=== PATIENT | male | born 1980 | race Caucasian/White ===

== ENCOUNTER 2021-08-21 15:32 | Emergency (ER) | payer OTHER, SELFPAY ==
[2021-08-21 15:35] VITALS: BP 143/75; PULSE 105; RESP 20; TEMP 36.4; O2SAT 100
--- NOTE | 2021-08-21 15:38 | DI.RAD.S_ITS ---
PROCEDURE: XR CHEST 1V INDICATIONS: chest pain TECHNIQUE: One view of the chest was acquired. COMPARISON: None. FINDINGS: Surgical changes and devices: None. Lungs and pleura: Lungs are clear. No pleural effusions or pneumothorax. Mediastinum: Mediastinal contours appear normal. Heart size is normal. Bones and chest wall: No suspicious bony lesions. Overlying soft tissues appear unremarkable. IMPRESSION: No acute cardiopulmonary abnormalities or focal airspace disease. There are no imaging findings to explain patient's chest pain. Dictated by: Sid Weaver M.D. on 08/21/2021 at 16:43 Approved by: Sid Weaver M.D. on 08/21/2021 at 16:43
[2021-08-21 16:02] VITALS: PULSE 88; O2SAT 100
[2021-08-21 16:03] VITALS: BP 136/83; PULSE 82; RESP 23; O2SAT 100
[2021-08-21 16:16] LABS: Add Manual Diff / Slide Review NO; Basophils Absolute Auto 100 /uL (0-100); Basophils Percent Auto 0.9 % (0-2); Eosinophils Absolute Auto 200 /uL (0-450); Eosinophils Percent Auto 2.2 % (2-4); Hematocrit 43.5 % (41-53); Hemoglobin 15.4 g/dL (13.5-17.5); Lymphocytes Absolute Auto 1700 /uL (1100-4500); Lymphocytes Percent Auto 21.8 % (25-40); Mean Corpuscular HGB Conc 35.4 % (30-36); Mean Corpuscular Hemoglobin 34.9 PG (26-34); Mean Corpuscular Volume 98.6 fL (80-100); Monocytes Absolute Auto 500 /uL (0-900); Monocytes Percent Auto 6.8 % (3-14); Neutrophils Absolute Auto 5400 /uL (1500-7000); Neutrophils Percent Auto 68.3 % (50-75); Platelet Count 172 X10^3/uL (150-400); Red Blood Cell Count 4.41 X10^6/uL (4.5-5.9); Red Cell Distribution Width 13.9 % (11.6-14.8); White Blood Cell Count 7.9 X10^3/uL (4.5-11.0)
[2021-08-21 16:30] VITALS: BP 123/73; PULSE 72; RESP 18; O2SAT 99
[2021-08-21 16:36] LABS: Lithium 0.8 mmol/L (0.6-1.2)
[2021-08-21 16:38] LABS: Alanine Aminotransferase 34 IU/L (<50); Albumin 4.5 g/dL (3.5-5.0); Albumin Globulin Ratio 1.6 (1.0-2.8); Alkaline Phosphatase 70 U/L (38-126); Aspartate Aminotransferase 39 IU/L (17-59); BUN Creatinine Ratio 12.1 (6-22); Bilirubin Total 0.6 mg/dL (0.2-1.3); Blood Urea Nitrogen 11 mg/dL (9-20); Calcium 9.4 mg/dL (8.4-10.2); Carbon Dioxide 30 mmol/L (22-32); Chloride 103 mmol/L (98-107); Creatine Kinase 213 U/L (55-170); Estimated Glomerular Filt Rate > 60 mL/min (>60); Globulin 2.9 g/dL (1.7-4.1); Glucose 116 mg/dL (70-100); HEMOLYSIS < 15 (0-50); Lipase 55 U/L (23-300); Potassium 3.7 mmol/L (3.4-5.1); Sodium 139 mmol/L (137-145); Total Protein 7.4 g/dL (6.3-8.2)
[2021-08-21 16:50] LABS: Troponin I < 0.012 ng/mL (0.01-0.034)
[2021-08-21 16:54] LABS: CKMB % Relative Index 0.9 % (1.5-5.0); Creatine Kinase MB 1.87 ng/mL (<2.37)
[2021-08-21 17:25] LABS: UR Morphine/Opiate cutoff 300 Negative (Negative); Ur Creatinine Normal (Normal); Ur Specific Gravity Normal (Normal); Urine Amphetamines Negative (Negative); Urine Barbiturates Negative (Negative); Urine Benzodiazepines Negative (Negative); Urine Cocaine Negative (Negative); Urine MDMA Negative (Negative); Urine Methadone Negative (Negative); Urine Methamphetamines Negative (Negative); Urine Oxycodone Negative (Negative); Urine Phencyclidine Negative (Negative); Urine Tetrahydrocannabinol Positive (Negative); Urine Tricyclic Antidepressant Negative (Negative); Urine pH Normal (Normal)
--- NOTE | 2021-08-21 20:41 | ED_ITS ---
HPI - Anxiety <BECKIE Thomas - Last Filed: 08/21/21 20:52> General Chief Complaint: Anxiety Stated Complaint: UNABLE TO FEEL BODY HEART RAISING VISION CHANGES Time Seen by Provider: 08/21/21 16:03 Source: patient Mode of arrival: Ambulatory History of Present Illness HPI narrative: This is a 32 year male presents to the emergency department complaining of not being able to feel his body, congestion allergic rhinitis symptoms, muscle aches, and is concerned about possible medication toxicity. Patient endorses having a history of bipolar and PTSD and is currently lithium 1200 mg, Seroquel 150 mg. He states that he had a dose changes Seroquel two months ago from 200- 150, states his lithium has been at this dose for the last three months. Patient endorses drinking six beers and one bottle of wine on two separate days over the weekend, he denies drinking alcohol usually otherwise. He endorses sm oking marijuana, states he has a history of migraines, denies any headache today but endorses muffled hearing in his ears, congestion, balance issues, muscle aches, sore throat and sinus issues. Patient denies any recent fever, nausea vomiting, weakness, is or known illness. Related Data Previous Rx's Medication Instructions Recorded cetirizine 5 mg-pseudoephedrine ER 1 tab PO BID #14 tab 08/21/21 120 mg tablet,extended release,12hr (Zyrtec-D) hydroxyzine HCl 25 mg tablet 25 mg PO TID PRN #20 tab 08/21/21 methocarbamol 500 mg tablet 500 mg PO TID PRN #20 tab 08/21/21 triamcinolone acetonide 55 mcg 1 spray INTRANASAL QAM #16.9 ml 08/21/21 nasal spray aerosol Allergies Allergy/AdvReac Type Severity Reaction Status Date / Time No Known Drug Allergies Allergy Verified 08/21/21 15:38 Review of Systems <BECKIE Thomas - Last Filed: 08/21/21 20:52> Review of Systems Narrative: General: denies fever, chills Head/Neck: denies headache, neck pain Eyes: denies visual changes, eye pain Cardio: denies chest pain, palpitations Respiratory: denies shortness of breath, cough GI: denies abdominal pain, nausea, vomiting, or diarrhea : denies dysuria, hematuria or flank pain MSK: denies new joint pain, muscle weakness or swelling Skin: denies rash, itching or wound Neuro: denies numbness, tingling, dizziness Patient History <BECKIE Thomas - Last Filed: 08/21/21 20:52> Social History Smoking Status: Current every day smoker Smoking Status: Current every day smoker Exam <BECKIE Thomas - Last Filed: 08/21/21 20:52> Narrative Exam Narrative: Independently reviewed vitals signs and nursing notes. General: Awake, alert, nontoxic, no cardiorespiratory distress Head/Neck: Atraumatic, neck supple Eyes: EOMI, conjunctiva normal Nose: nares patent, + rhinorrhea Mouth/Throat: moist mucus membranes, posterior pharynx without erythema or lesion Cardio: Regular rate and rhythm, no peripheral edema, S1-S2 without murmur Respiratory: respirations unlabored without wheezing, stridor, or rales. No retractions, hypoxia or tachypnea GI: Abdomen soft, nontender to palpation x4 quadrants, no guarding or rebound tenderness MSK: Moves all extremities, neurovascularly intact, range of motion without deficit Skin: Normal capillary refill, no rash Neuro: Normal speech and cognition, normal gait Initial Vital Signs Initial Vital Signs: Vital Signs Temperature 97.6 F 08/21/21 15:35 Pulse Rate 105 H 08/21/21 15:35 Respiratory Rate 20 08/21/21 15:35 Blood Pressure 143/75 H 08/21/21 15:35 Pulse Oximetry 100 08/21/21 15:35 <Ani Bourne DO - Last Filed: 08/22/21 07:21> Initial Vital Signs Initial Vital Signs: Vital Signs Temperature 97.6 F 08/21/21 15:35 Pulse Rate 105 H 08/21/21 15:35 Respiratory Rate 20 08/21/21 15:35 Blood Pressure 143/75 H 08/21/21 15:35 Pulse Oximetry 100 08/21/21 15:35 Course <BECKIE Thomas - Last Filed: 08/21/21 20:52> Orders Ordered: ED Orders 08/21/21 15:38 XR chest 1V Stat EKG-12 Lead Stat 08/21/21 15:50 Complete Blood Count AUTO DIFF Stat Comprehensive Metabolic Panel Stat Lipase Stat [place] Stat Magnesium Stat Troponin & CK Cardiac Panel Stat 08/21/21 17:15 Urine Drug Screen, Rapid Stat Vital Signs Vital signs: Vital Signs - 8 hr 08/21/21 15:35 08/21/21 16:02 08/21/21 16:03 Temperature 97.6 F Pulse Rate 105 H 88 82 Respiratory Rate 20 23 Blood Pressure 143/75 H 136/83 Pulse Oximetry 100 100 100 08/21/21 16:30 Temperature Pulse Rate 72 Respiratory Rate 18 Blood Pressure 123/73 Pulse Oximetry 99 <Ani Bourne DO - Last Filed: 08/22/21 07:21> Orders Ordered: ED Orders 08/21/21 15:38 XR chest 1V Stat EKG-12 Lead Stat 08/21/21 15:50 Complete Blood Count AUTO DIFF Stat Comprehensive Metabolic Panel Stat Lipase Stat [place] Stat Magnesium Stat Troponin & CK Cardiac Panel Stat 08/21/21 17:15 Urine Drug Screen, Rapid Stat Vital Signs Vital signs: Vital Signs - 8 hr 08/21/21 15:35 08/21/21 16:02 08/21/21 16:03 Temperature 97.6 F Pulse Rate 105 H 88 82 Respiratory Rate 20 23 Blood Pressure 143/75 H 136/83 Pulse Oximetry 100 100 100 08/21/21 16:30 Temperature Pulse Rate 72 Respiratory Rate 18 Blood Pressure 123/73 Pulse Oximetry 99 MDM - Anxiety <BECKIE Thomas - Last Filed: 08/21/21 20:52> Lab Data Result diagrams: 08/21/21 15:50 08/21/21 15:50 Labs: Lab Results 08/21/21 08/21/21 08/21/21 Range/Units 15:50 15:50 15:50 WBC 7.9 (4.5-11.0) X10^3/uL RBC 4.41 L (4.5-5.9) X10^6/uL Hgb 15.4 (13.5-17.5) g/dL Hct 43.5 (41-53) % MCV 98.6 (80-100) fL MCH 34.9 H (26-34) PG MCHC 35.4 (30-36) % RDW 13.9 (11.6-14.8) % Plt Count 172 (150-400) X10^3/uL Neut % (Auto) 68.3 (50-75) % Lymph % (Auto) 21.8 L (25-40) % [place] % (Auto) 6.8 (3-14) % Eos % (Auto) 2.2 (2-4) % Baso % (Auto) 0.9 (0-2) % Neut # (Auto) 5400 (0050-3392) /uL Lymph # (Auto) 1700 (6034-2543) /uL [place] # (Auto) 500 (0-900) /uL Eos # (Auto) 200 (0-450) /uL Baso # (Auto) 100 (0-100) /uL Sodium 139 (137-145) mmol/L Potassium 3.7 (3.4-5.1) mmol/L Chloride 103 (98-107) mmol/L Carbon Dioxide 30 (22-32) mmol/L BUN 11 (9-20) mg/dL Creatinine 0.91 (0.66-1.25) mg/dL Estimated GFR > 60 (>60) mL/min BUN/Creatinine Ratio 12.1 (6-22) Glucose 116 H (70-100) mg/dL Calcium 9.4 (8.4-10.2) mg/dL Magnesium 2.0 (1.6-2.3) mg/dL Total Bilirubin 0.6 (0.2-1.3) mg/dL AST 39 (17-59) IU/L ALT 34 (<50) IU/L Alkaline Phosphatase 70 (38-126) U/L Total Creatine Kinase 213 H (55-170) U/L CK-MB (CK-2) 1.87 (<2.37) ng/mL CK-MB (CK-2) Rel Index 0.9 L (1.5-5.0) % Troponin I < 0.012 (0.01-0.034) ng/mL Total Protein 7.4 (6.3-8.2) g/dL Albumin 4.5 (3.5-5.0) g/dL Globulin 2.9 (1.7-4.1) g/dL Albumin/Globulin Ratio 1.6 (1.0-2.8) Lipase 55 (23-300) U/L U Opiates 300ng/mL cut (Negative) Ur Oxycodone Screen (Negative) Urine Methadone Screen (Negative) Ur Barbiturates Screen (Negative) U Tricyclic Antidepress (Negative) Ur Phencyclidine Scrn (Negative) Ur Amphetamines Screen (Negative) U Methamphetamines Scrn (Negative) Ur MDMA Scrn (Ecstasy) (Negative) U Benzodiazepines Scrn (Negative) [place] 0.8 (0.6-1.2) mmol/L Urine Cocaine Screen (Negative) U Marijuana (THC) Screen (Negative) 08/21/21 Range/Units 17:15 WBC (4.5-11.0) X10^3/uL RBC (4.5-5.9) X10^6/uL Hgb (13.5-17.5) g/dL Hct (41-53) % MCV (80-100) fL MCH (26-34) PG MCHC (30-36) % RDW (11.6-14.8) % Plt Count (150-400) X10^3/uL Neut % (Auto) (50-75) % Lymph % (Auto) (25-40) % [place] % (Auto) (3-14) % Eos % (Auto) (2-4) % Baso % (Auto) (0-2) % Neut # (Auto) (9456-8895) /uL Lymph # (Auto) (0846-4990) /uL [place] # (Auto) (0-900) /uL Eos # (Auto) (0-450) /uL Baso # (Auto) (0-100) /uL Sodium (137-145) mmol/L Potassium (3.4-5.1) mmol/L Chloride (98-107) mmol/L Carbon Dioxide (22-32) mmol/L BUN (9-20) mg/dL Creatinine (0.66-1.25) mg/dL Estimated GFR (>60) mL/min BUN/Creatinine Ratio (6-22) Glucose (70-100) mg/dL Calcium (8.4-10.2) mg/dL Magnesium (1.6-2.3) mg/dL Total Bilirubin (0.2-1.3) mg/dL AST (17-59) IU/L ALT (<50) IU/L Alkaline Phosphatase (38-126) U/L Total Creatine Kinase (55-170) U/L CK-MB (CK-2) (<2.37) ng/mL CK-MB (CK-2) Rel Index (1.5-5.0) % Troponin I (0.01-0.034) ng/mL Total Protein (6.3-8.2) g/dL Albumin (3.5-5.0) g/dL Globulin (1.7-4.1) g/dL Albumin/Globulin Ratio (1.0-2.8) Lipase (23-300) U/L U Opiates 300ng/mL cut Negative (Negative) Ur Oxycodone Screen Negative (Negative) Urine Methadone Screen Negative (Negative) Ur Barbiturates Screen Negative (Negative) U Tricyclic Antidepress Negative (Negative) Ur Phencyclidine Scrn Negative (Negative) Ur Amphetamines Screen Negative (Negative) U Methamphetamines Scrn Negative (Negative) Ur MDMA Scrn (Ecstasy) Negative (Negative) U Benzodiazepines Scrn Negative (Negative) [place] (0.6-1.2) mmol/L Urine Cocaine Screen Negative (Negative) U Marijuana (THC) Screen Positive H (Negative) Imaging Data Chest x-ray: Radiologist's Impression: PROCEDURE:? XR CHEST 1V ? INDICATIONS:? chest pain ? TECHNIQUE:? One view of the chest was acquired.? ? COMPARISON:? None. ? FINDINGS:? ? Surgical changes and devices:? None.? ? Lungs and pleura:? Lungs are clear.? No pleural effusions or pneumothorax.? ? Mediastinum:? Mediastinal contours appear normal.? Heart size is normal.? ? Bones and chest wall:? No suspicious bony lesions.? Overlying soft tissues appear unremarkable.? ? IMPRESSION:? No acute cardiopulmonary abnormalities or focal airspace disease. ? There are no imaging findings to explain patient's chest pain. ? ? ? Dictated by: Sid Weaver M.D. on 08/21/2021 at 16:43 ? ? Approved by: Sid Weaver M.D. on 08/21/2021 at 16:43 ? ECG Data Interpretation: EKG independently reviewed by myself reveals normal sinus rhythm at [87] bpm with regular axis and intervals. No STEMI, ST segment changes, arrhythmia, or acute ischemic changes. MDM Narrative Medical decision making narrative: This is a 41-year-old male with history of bipolar, PTSD, on Seroquel and lithium who presents the emergency department stating he cannot feel his body, he has congestion, sinus tenderness, muscle aches and states he drank more alcohol than he usually does over the weekend but denies any ingestion of any other substances. He is on lithium and Seroquel, his lithium level today is 0.8, drug screen was positive for marijuana only, pertinent findings on lab work include a troponin of 0.012, total CK was elevated at 213 with CK-MB of 0.9 being low, no leukocytosis, anemia or any other abnormal findings. Chest x-ray was negative for acute cardiopulmonary abnormality. On exam, patient has b ilateral middle ear effusion, endorses congestion, has sinus tenderness to palpation, states that he takes cetirizine daily but had for got over the last few days. Encouraged him to continue taking cetirizine, prescribed him cetirizine with pseudoephedrine for acute treatment of his congestion, hyd roxyzine for his anxiety, itching sensation, methocarbamol for his muscle aches as he did have an elevated CK, and he has palpable muscle tension in his bilateral trapezius, and prescribed triamcinolone nasalspray for his allergy symptoms. Encouraged him to follow-up with his primary care provider if ongoing, or to return to the emergency department for any worsening of his symptoms. Multiple causes of chest pain considered including NE, PE, pneumothorax, pneumonia, aortic dissection, and pleurisy. Patient reports no radiation, no diaphoresis, no provocation with exertion, and no vomiting. Patient is appropriate and amenable to discharge home. Vital signs are stable on repeat examination is unremarkable. Patient has been informed of results. Patient has been given strict return to ER precautions for any new or worsening symptoms. Patient understands to follow up closely with outpatient providers as instructed. Patient understands plan and agrees to discharge home. All questions and concerns answered at this time. <Ani Bourne, DO - Last Filed: 08/22/21 07:21> Lab Data Labs: Lab Results 08/21/21 08/21/21 08/21/21 Range/Units 15:50 15:50 15:50 WBC 7.9 (4.5-11.0) X10^3/uL RBC 4.41 L (4.5-5.9) X10^6/uL Hgb 15.4 (13.5-17.5) g/dL Hct 43.5 (41-53) % MCV 98.6 (80-100) fL MCH 34.9 H (26-34) PG MCHC 35.4 (30-36) % RDW 13.9 (11.6-14.8) % Plt Count 172 (150-400) X10^3/uL Neut % (Auto) 68.3 (50-75) % Lymph % (Auto) 21.8 L (25-40) % [place] % (Auto) 6.8 (3-14) % Eos % (Auto) 2.2 (2-4) % Baso % (Auto) 0.9 (0-2) % Neut # (Auto) 5400 (9346-0953) /uL Lymph # (Auto) 1700 (9043-3205) /uL [place] # (Auto) 500 (0-900) /uL Eos # (Auto) 200 (0-450) /uL Baso # (Auto) 100 (0-100) /uL Sodium 139 (137-145) mmol/L Potassium 3.7 (3.4-5.1) mmol/L Chloride 103 (98-107) mmol/L Carbon Dioxide 30 (22-32) mmol/L BUN 11 (9-20) mg/dL Creatinine 0.91 (0.66-1.25) mg/dL Estimated GFR > 60 (>60) mL/min BUN/Creatinine Ratio 12.1 (6-22) Glucose 116 H (70-100) mg/dL Calcium 9.4 (8.4-10.2) mg/dL Magnesium 2.0 (1.6-2.3) mg/dL Total Bilirubin 0.6 (0.2-1.3) mg/dL AST 39 (17-59) IU/L ALT 34 (<50) IU/L Alkaline Phosphatase 70 (38-126) U/L Total Creatine Kinase 213 H (55-170) U/L CK-MB (CK-2) 1.87 (<2.37) ng/mL CK-MB (CK-2) Rel Index 0.9 L (1.5-5.0) % Troponin I < 0.012 (0.01-0.034) ng/mL Total Protein 7.4 (6.3-8.2) g/dL Albumin 4.5 (3.5-5.0) g/dL Globulin 2.9 (1.7-4.1) g/dL Albumin/Globulin Ratio 1.6 (1.0-2.8) Lipase 55 (23-300) U/L U Opiates 300ng/mL cut (Negative) Ur Oxycodone Screen (Negative) Urine Methadone Screen (Negative) Ur Barbiturates Screen (Negative) U Tricyclic Antidepress (Negative) Ur Phencyclidine Scrn (Negative) Ur Amphetamines Screen (Negative) U Methamphetamines Scrn (Negative) Ur MDMA Scrn (Ecstasy) (Negative) U Benzodiazepines Scrn (Negative) [place] 0.8 (0.6-1.2) mmol/L Urine Cocaine Screen (Negative) U Marijuana (THC) Screen (Negative) 08/21/21 Range/Units 17:15 WBC (4.5-11.0) X10^3/uL RBC (4.5-5.9) X10^6/uL Hgb (13.5-17.5) g/dL Hct (41-53) % MCV (80-100) fL MCH (26-34) PG MCHC (30-36) % RDW (11.6-14.8) % Plt Count (150-400) X10^3/uL Neut % (Auto) (50-75) % Lymph % (Auto) (25-40) % [place] % (Auto) (3-14) % Eos % (Auto) (2-4) % Baso % (Auto) (0-2) % Neut # (Auto) (0632-5321) /uL Lymph # (Auto) (8310-2122) /uL [place] # (Auto) (0-900) /uL Eos # (Auto) (0-450) /uL Baso # (Auto) (0-100) /uL Sodium (137-145) mmol/L Potassium (3.4-5.1) mmol/L Chloride (98-107) mmol/L Carbon Dioxide (22-32) mmol/L BUN (9-20) mg/dL Creatinine (0.66-1.25) mg/dL Estimated GFR (>60) mL/min BUN/Creatinine Ratio (6-22) Glucose (70-100) mg/dL Calcium (8.4-10.2) mg/dL Magnesium (1.6-2.3) mg/dL Total Bilirubin (0.2-1.3) mg/dL AST (17-59) IU/L ALT (<50) IU/L Alkaline Phosphatase (38-126) U/L Total Creatine Kinase (55-170) U/L CK-MB (CK-2) (<2.37) ng/mL CK-MB (CK-2) Rel Index (1.5-5.0) % Troponin I (0.01-0.034) ng/mL Total Protein (6.3-8.2) g/dL Albumin (3.5-5.0) g/dL Globulin (1.7-4.1) g/dL Albumin/Globulin Ratio (1.0-2.8) Lipase (23-300) U/L U Opiates 300ng/mL cut Negative (Negative) Ur Oxycodone Screen Negative (Negative) Urine Methadone Screen Negative (Negative) Ur Barbiturates Screen Negative (Negative) U Tricyclic Antidepress Negative (Negative) Ur Phencyclidine Scrn Negative (Negative) Ur Amphetamines Screen Negative (Negative) U Methamphetamines Scrn Negative (Negative) Ur MDMA Scrn (Ecstasy) Negative (Negative) U Benzodiazepines Scrn Negative (Negative) [place] (0.6-1.2) mmol/L Urine Cocaine Screen Negative (Negative) U Marijuana (THC) Screen Positive H (Negative) ECG Data Interpretation: EKG independently reviewed by myself reveals normal sinus rhythm at [87] bpm with regular axis and intervals. No STEMI, ST segment changes, arrhythmia, or acute ischemic changes. [place]-sinus rhythm rate 80 7p removal 150 QRS [address] changes no T- wave inversions incomplete right bundle-branch block noted no prior EKGs to compare Discharge Plan Departure Patient Disposition: Home Clinical Impression: Muscle strain Allergic rhinitis Qualifiers: Allergic rhinitis trigger: unspecified Allergic rhinitis seasonality: unspecified Qualified Code(s): J30.9 - Allergic rhinitis, unspecified Instructions: Allergic Rhinitis Activity Restrictions/Additional Instructions: *You have been diagnosed with muscle tension and likely muscle strain, there was evidence of muscle strain on your lab work, your lithium level is 0.8, this is normal, please continue your regimen without changing it. I have prescribed for you Zyrtec D which includes pseudoephedrine which is a decongestant, this may help clear up your ear fullness, please use methocarbamol every 6-8 hours as needed for tight muscles, you can try the nasal spray I sent to the pharmacy which might be stronger than Flonase, and hydroxyzine as needed for allergy symptoms and anxiety. Please take Benadryeliana alvarenga, to see how this helps her symptoms. No other emergent causes to your symptoms were found on workup today. Please follow-up with your psychiatrist as needed, this is most likely related to your allergic rhinitis, hopefully as your eustachian tubes clear, you will start to feel better soon. *What to do: *Please continue to take your regular medications as directed. [ x] New medication prescriptions sent to your pharmacy: [ [facility]] [ ] New medication written as a paper prescription [ ] No new medications given *Please follow up with your primary care provider in 2-3 days, call for an appointment. Let them know you were seen in the Emergency Department and that we asked that you be seen for follow-up. We will electronically transmit a record of today's note if your PCP is in our system *If you do not have a primary care provider please contact [phone] to establish care with one of the [facility] primary care providers. *Return to Emergency Department if you should have any new, worsening or baltazar rning symptoms, such as [fever greater than 101F, chills, worsening pain, persistent vomiting or other bothersome symptoms] Prescriptions: New hydroxyzine HCl 25 mg tablet 25 mg PO TID PRN (Reason: allergy symptoms) Qty: 20 0RF triamcinolone acetonide 55 mcg aerosol,spray 1 spray intranasal QAM Qty: 16.9 0RF Rx Instructions: administer into each nostril cetirizine-pseudoephedrine [Zyrtec-D] 5-120 mg tablet extended release 12 hr 1 tab PO BID Qty: 14 0RF methocarbamol 500 mg tablet 500 mg PO TID PRN (Reason: muscle tension) Qty: 20 0RF <Ani Bourne, - Last Filed: 08/22/21 07:21> Cosign ED Attending Yuvalature Attestation: I was immediately available in the department for consultation. Documentation has been reviewed. I agree with assessment and plan.
== END 2021-08-21 17:16 | disposition home or self-care (01) ==
PROVIDERS: Emergency Medicine; Emergency Provider Nurse Practitioner Critical Care Medicine
DX: J30.9 Allergic rhinitis, unspecified (principal); S29.012A Strain of muscle and tendon of back wall of thorax, initial encounter; R07.9 Chest pain, unspecified
CPT/HCPCS: 36415; 71045; 80053; 80178; 80305; 82550; 82553; 83690; 83735; 84484; 85025; 93005; 93010; 99283